=== PATIENT | female | born 1955 | race Caucasian/White ===

== ENCOUNTER → 2018-04-19 | Day surgery (SDC) | payer BC ==
[~2018-04-19] VITALS: Ht 160 cm; Wt 69.4 kg
[~2018-04-19] MED LIST: ALBU8.5H12 IH; IBU600 PO; LIDOCAINE/SOD BICARB 8.4% SYR ID ONE; MULT-1335 PO; NO ROUTINE MEDS; NORMOSOL R SOLN(*) 1000 ML BAG 1,000 ML IV PRN; PER PO; PROPOFOL EMUL(*) 10MG/ML 20 ML 20 ML ONE; TRAM-429 PO; TRAM-625 PO; VICODIN
[2018-04-19 08:47] VITALS: BP 130/76
[2018-04-19 10:37] VITALS: BP 134/87
[2018-04-19 10:45] VITALS: BP 145/85
[2018-04-19 11:00] VITALS: BP 151/93
[2018-04-19 11:04] VITALS: BP 149/99
[2018-04-19 11:05] VITALS: BP 149/96
== END ==
LOC: OR 01:45
PROVIDERS: ATTEND Family Medicine
DX: R19.4 Change in bowel habit (principal); Z86.010 Personal history of colon polyps
CPT/HCPCS: 00811; 45378; J2704